=== PATIENT | male | born 1980 | race Caucasian/White ===

== ENCOUNTER → 2016-12-10 | Outpatient (CLI) | payer OTHER ==
--- NOTE | 2016-12-10 14:33 | XR ---
EXAMINATION TYPE: XR Hip Complete RT DATE OF EXAM: 12/10/2016 CLINICAL HISTORY: History of avascular necrosis. Increased pain, currently on steroids for leukemia. TECHNIQUE: AP and frogleg views of the right hip are obtained. COMPARISON: None. FINDINGS: There is well corticated lucency from prior fixation hardware through femoral neck of right proximal femur. There is persistent K wire intertrochanteric level of right proximal femur. Overlyin g surgical clips are present. In the superior medial femoral head there is linear lucency with ossifi c fragmentation consistent with avascular necrosis. 2 fracture fragments measuring 1.7 and 1.2 cm in length are felt present. There are only minimally . Hip joint space is fairly well-maintaine d. IMPRESSION: There is radiographic confirmation of avascular necrosis right hip.
== END | disposition home or self-care (01) ==
LOC: RADXRMAIN 11:35
PROVIDERS: ATTEND Family Medicine
DX: M87.851 Other osteonecrosis, right femur (principal)
CPT/HCPCS: 73502